=== PATIENT | female | born 1950 | race Caucasian/White ===

== ENCOUNTER 2023-10-22 07:31 | Day surgery (SDC) | payer SELFPAY ==
[2023-10-16 09:05] VITALS: BMI 25.8
[2023-10-22] MEDS ORDERED: DEXAMETHASONE SOD PHOSPHATE 4 MG/1 ML VIAL ONE ×2 (08:43→10:47)
[2023-10-22] MEDS ORDERED: MIDAZOLAM HCL 2 MG/2 ML SINGLE DOSE VIAL ONE (08:43)
[2023-10-22] MEDS ORDERED: ONDANSETRON 4 MG/2 ML VIAL ONE ×2 (08:43→10:47)
[2023-10-22] MEDS ORDERED: PROPOFOL 80 ML ONE (08:43)
[2023-10-22] MEDS ORDERED: ceFAZolin SODIUM 1 GM VIAL ONE (08:43)
[2023-10-22] MEDS ORDERED: LIDOCAINE HCL/PF 2% SDV 5ML VIAL ONE (08:44)
[2023-10-22] MEDS ORDERED: ROCURONIUM BROMIDE 50 MG/5 ML SYRINGE ONE (08:44)
[2023-10-22] MEDS ORDERED: BACITRACIN ZINC 15 GM TUBE TOPICAL OINTMENT ONE (09:21)
[2023-10-22] MEDS ORDERED: LIDOCAINE 1%/EPI 1:100000 (20 ML MULTI DOSE VIAL) ONE ×2 (09:21→09:25)
[2023-10-22] MEDS ORDERED: TRANEXAMIC ACID 1000 MG/10 ML VIAL ONE (09:25)
[2023-10-22] MEDS ORDERED: ACETAMINOPHEN INJECTION 100 ML IVPB ONE (10:07)
[2023-10-22] MEDS ORDERED: LACTATED RINGERS SOLUTION 1,000 ML IV SCH ×3 (10:15→16:30)
[2023-10-22] MEDS ORDERED: PHENYLEPHRINE HCL 10 MG/1 ML SINGLE DOSE VIAL ONE (10:55)
[2023-10-22] MEDS ORDERED: ePHEDrine SULFATE 50 MG/1 ML AMPULE ONE (11:55)
[2023-10-22] MEDS ORDERED: PROPOFOL 60 ML ONE ×2 (12:23→14:37)
[2023-10-22] MEDS ORDERED: PROPOFOL 40 ML ONE ×2 (13:39→15:42)
[2023-10-22] MEDS ORDERED: NITROGLYCERIN 2% OINTMENT - 1GM PACKET TD ONE (15:53)
[2023-10-22] MEDS ORDERED: ONDANSETRON 4 MG/2 ML VIAL IVPUSH PRN (16:21)
[2023-10-22] MEDS ORDERED: ONDANSETRON 4 MG/2 ML VIAL IVPB PRN (16:28)
[2023-10-22] MEDS ORDERED: oxyCODONE HCL 5 MG TABLET PO PRN (16:28)
[2023-10-22] MEDS ORDERED: LABETALOL HCL 5 MG/1 ML (100MG/20 ML VIAL) IVPUSH PRN (16:34)
[2023-10-22] MEDS: CEFAZOLIN 1 GM in DEXTROSE 5%-WATER - 50 ML IVPB SCH (20:26)
[2023-10-22] MEDS: ACETAMINOPHEN 1000 MG/100 ML BAG IVPB PRN (20:27)
[2023-10-22] MEDS: MONTELUKAST NA 10 MG TABLET PO SCH (20:59)
[2023-10-22] MEDS: amLODIPine BESYLATE 10 MG TABLET (FP) PO SCH (20:59)
[2023-10-22] MEDS: ROSUVASTATIN CA 20 MG TABLET PO SCH (20:59)
[2023-10-23 02:22] VITALS: RESP 18
[2023-10-23 06:36] VITALS: TEMP 98.2
[2023-10-23] MEDS: LOSARTAN POTASSIUM 50 MG TABLET PO SCH (09:18)
[2023-10-23] MEDS: buPROPion HCL 100 MG TABLET PO SCH (09:18)
[2023-10-23] MEDS: DULoxetine HCL 20 MG CAPSULE.DR PO SCH (09:18)
[2023-10-23 10:05] VITALS: BP 137/80; PULSE 78
== END 2023-10-23 10:00 | disposition home or self-care (01) ==
LOC: FASUSAT 07:31 → FASU 07:31 → FM/S 17:59 → FASUSAT 10-23 10:00
PROVIDERS: ATTEND Plastic Surgery
PROC: 0W020ZZ Alteration of Face, Open Approach (ICD-10-PCS; principal; 2023-10-22 11:12)
DX: Z41.1 Encounter for cosmetic surgery (principal); L90.9 Atrophic disorder of skin, unspecified
CPT/HCPCS: 94760; J0131